=== PATIENT | female | born 1980 | race Caucasian/White ===

== ENCOUNTER 2016-05-03 20:45 | Emergency (ER) | payer BC ==
[~2016-05-03] VITALS: Ht 167.6 cm; Wt 81.3 kg
[~2016-05-03 20:45] MED LIST: LEVA500T PO; METR-1 PO; MIRTA15 PO; NORC7.5T PO; XANA0.5T PO; Z.0.BCPILL PO; ZYRT10TA12 PO
[2016-05-03 20:49] VITALS: BP 146/88; PULSE 88; RESP 20; TEMP 98; O2SAT 98
[2016-05-03] MEDS ORDERED: CLINDAMYCIN PHOS 600 MG/4 ML VIAL IM ONE (22:00)
[2016-05-03] MEDS ORDERED: TETANUS/DIPHTHERIA TOXOID ADULT 0.5 ML VIAL IM ONE (22:00)
[2016-05-03] MEDS ORDERED: LIDOCAINE 1%/EPINEPHrine 1:100,000 SOLN 20 ML VIAL INFIL ONE (22:00)
[2016-05-03] MEDS ORDERED: CLIN1CAP5 PO (22:07)
[2016-05-03] MEDS ORDERED: NORC5TAB PO (22:07)
[2016-05-03] MEDS ORDERED: BACT800T5 PO (22:07)
--- NOTE | 2016-05-03 22:07 | PD ---
HPI Chief Complaint: Skin Problem Time Seen by Provider: 21:51 Travel History International Travel<30 days: No Contact w/Intl Traveler<30days: No Traveled to known affect area: No History of Present Illness HPI 35 years old female complaining of painful lumps around the sternal area. Patient states that she has a lump around the sternal area for the past month. Patient states that she had increasing pain and swelling for the past few days. Patient states the pain is sharp stabbing pain localized to the anterior chest wall area. Patient denies any pain radiation. On a scale from 1-10 the pain is a 10. Patient states that she is not up-to-date with TD booster. 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) Social History Alcohol Use: No Tobacco Use: Yes (1 PPD) Substance Use: No Allergies-Medications (Allergen,Severity, Reaction): Coded Allergies: Flu Vaccine (Verified Allergy, Intermediate, LOCALIZED SWELLING/FEVER, ) Zoloft (Verified Allergy, Intermediate, UNKNOWN, 11/13/14) Codeine (Verified Allergy, Mild, Nausea/Vomiting, 11/13/14) Wellbutrin (Verified Adverse Reaction, Intermediate, METALLIC TASTE IN MOUTH, 11/13/14) Reported Meds & Prescriptions Reported Meds & Active Scripts Active Clindamycin (Clindamycin HCl) 150 Mg Cap 2 Tab PO Q6H Bactrim DS (Sulfamethoxazole-Trimethoprim) 800-160 Mg Tab 1 Tab PO BID [place] (Hydrocodone-Acetaminophen) 5-325 mg Tab 1 Tab PO Q6H PRN Levaquin 500 Mg Tab (Levofloxacin) 500 Mg Tab 500 Mg PO DAILY Flagyl (Metronidazole) 500 Mg Tab 500 Mg PO QID Reported Zyrtec (Cetirizine HCl) 10 Mg Tab 10 Mg PO DAILY Mirtazapine 15 Mg Tab Unknown Dose PO HS Control Pills (Miscellaneous Medication) Tab 1 Tab PO HS [place] 7.5-325 mg (Hydrocodone-Acetaminophen 7.5-325 mg) 7.5 Mg/325 Mg Tab 1 Tab PO Q6H PRN Xanax 0.5 mg (Alprazolam) 0.5 Mg Tab 0.5 Mg PO BID PRN Review of Systems General / Constitutional: No: Fever Eyes: No: Visual changes HENT: No: Headaches Cardiovascular: No: Chest Pain or Discomfort Respiratory: No: Shortness of Breath Gastrointestinal: No: Abdominal Pain Genitourinary: No: Dysuria Musculoskeletal: No: Pain Skin: No Rash Neurologic: No: Weakness Psychiatric: No: Depression Endocrine: No: Polydipsia Hematologic/Lymphatic: No: Easy Bruising Physical Exam Narrative GENERAL: Well-nourished, well-developed patient. SKIN: Warm and dry. HEAD: Normocephalic. EYES: No scleral icterus. No injection or drainage. NECK: Supple, trachea midline. No JVD or lymphadenopathy. CARDIOVASCULAR: Regular rate and rhythm without murmurs, gallops, or rubs. RESPIRATORY: Breath sounds equal bilaterally. No accessory muscle use. GASTROINTESTINAL: Abdomen soft, non-tender, nondistended. MUSCULOSKELETAL: No cyanosis, or edema. BACK: Nontender without obvious deformity. No CVA tenderness. Patient has an area redness swelling tenderness midsternal area with the nodule lesion over the sternum. Data Data Last Documented VS Vital Signs Date Time Temp Pulse Resp B/P Pulse Ox O2 Delivery O2 Flow Rate FiO2 05/03/16 20:49 98.0 88 20 146/88 98 Orders Lidocai-Epi 1%-1:100,000 Inj (Xylocaine- (05/03/16 22:00) Wound Culture And Gram Stain (05/03/16 21:57) Clindamycin Inj (Cleocin Inj) (05/03/16 22:00) Tetanus/Diphtheria Tox Adult (Tetanus/Di (05/03/16 22:00) Acetamin-Hydrocod 325-5 Mg ([place] 5-325 (05/03/16 22:15) MDM Medical Decision Making Medical Screen Exam Complete: Yes Emergency Medical Condition: Yes Differential Diagnosis Differential diagnosis including cellulitis, abscess, infected cyst. Narrative Course 35 year old female with a painful nodule lesion sternal area. Clindamycin 600 mg IM. TD booster given. Lortab 5/325, one tablet by mouth given. Procedures Procedure Narrative 1% lidocaine with epinephrine local anesthesia. Betadine wash. 1 cm incision was made with #11 scalpel. A moderate amount pus and sebaceous cyst material obtained. Wound culture obtained. Dressing applied. Diagnosis Primary Impression: Chest wall abscess Patient Instructions: General Instructions Additional Instructions: Take medication as directed. Return in 2 days for recheck and packing removal. Return sooner if worse. Med/Other Pt SpecificInfo: Prescription(s) given Scripts Clindamycin 150 Mg Cap2 Tab PO Q6H #80 CAP Prov:Blake Denton MD 05/03/16 Sulfamethoxazole-Trimethoprim (Bactrim DS)800-160 Mg Tab1 Tab PO BID #20 TAB Prov:Blake Denton MD 05/03/16 Hydrocodone-Acetaminophen ([place])5-325 mg Tab1 Tab PO Q6H PRN (PAIN) #20 TAB Prov:Blake Denton MD 05/03/16 Disposition: 01 DISCHARGE HOME Condition: Stable Blake Denton MD May 03, 2016 22:07
[2016-05-03] MEDS ORDERED: ACETAMINOPHEN/HYDROcodone 325 MG/5 MG TAB PO ONE (22:15)
[2016-05-05] MEDS ORDERED: ALPR.5 PO (15:54)
[2016-05-05] MEDS ORDERED: MIRT45TA PO (15:55)
== END 2016-05-04 00:07 | disposition home or self-care (01) ==
LOC: PHED 20:45
DX: L02.213 Cutaneous abscess of chest wall (principal); F17.210 Nicotine dependence, cigarettes, uncomplicated; F41.8 Other specified anxiety disorders
CPT/HCPCS: 10060; 87070; 87185

== ENCOUNTER 2016-05-05 14:41 | Emergency (ER) | payer BC ==
[~2016-05-05] VITALS: Ht 167.6 cm; Wt 79.0 kg
[~2016-05-05 14:41] MED LIST changes: +BACT800T5 PO; +CLIN1CAP5 PO; +NORC5TAB PO
[2016-05-05 14:45] VITALS: BP 120/70; PULSE 83; RESP 16; TEMP 98.2; O2SAT 97
--- NOTE | 2016-05-05 15:41 | PD ---
HPI . Chest wall abscess follow-up Chief Complaint: Wound/Suture/Staple Re-Check Time Seen by Provider: 15:40 Travel History International Travel<30 days: No Contact w/Intl Traveler<30days: No Traveled to known affect area: No History of Present Illness HPI 35-year-old female here to follow-up on her chest wall abscess that was drained 2 days ago. Patient had an incision and drainage and had packing placed in her chest wall abscess. She is here to have the packing removed. She is doing very well and reports that the draining has subsided significantly. She is taking her medications as prescribed and has no complaints today. Denies any fever or chills.. Initial wound culture with no growth after 24 hours. This was discussed with the patient. 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) Social History Alcohol Use: No Tobacco Use: Yes (1 PPD) Substance Use: No Allergies-Medications (Allergen,Severity, Reaction): Coded Allergies: Flu Vaccine (Verified Allergy, Intermediate, LOCALIZED SWELLING/FEVER, ) Zoloft (Verified Allergy, Intermediate, UNKNOWN, 05/05/16) Codeine (Verified Allergy, Mild, Nausea/Vomiting, 05/05/16) Wellbutrin (Verified Adverse Reaction, Intermediate, METALLIC TASTE IN MOUTH, 05/05/16) Reported Meds & Prescriptions Reported Meds & Active Scripts Active Clindamycin (Clindamycin HCl) 150 Mg Cap 2 Tab PO Q6H Bactrim DS (Sulfamethoxazole-Trimethoprim) 800-160 Mg Tab 1 Tab PO BID [place] (Hydrocodone-Acetaminophen) 5-325 mg Tab 1 Tab PO Q6H PRN Reported Mirtazapine 45 Mg Tab 45 Mg PO HS Xanax (Alprazolam) 0.5 Mg Tab 0.5 Mg PO Q8H PRN Review of Systems General / Constitutional: No: Fever Eyes: No: Visual changes HENT: No: Headaches Cardiovascular: No: Chest Pain or Discomfort Respiratory: No: Shortness of Breath Gastrointestinal: No: Abdominal Pain Genitourinary: No: Dysuria Musculoskeletal: No: Pain Skin: No Rash Neurologic: No: Weakness Psychiatric: No: Depression Endocrine: No: Polydipsia Hematologic/Lymphatic: No: Easy Bruising Physical Exam Narrative GENERAL: AAO x 3, no acute distress, Well-nourished, well-developed patient. SKIN: Warm and dry. No visible rashes or bruising. HEAD: Normocephalic and atraumatic. EYES: No scleral icterus. No injection or drainage. ENT: No nasal drainage noted. Mucous membranes pink. Airway patent. NECK: Supple, trachea midline. No JVD. CARDIOVASCULAR: Regular rate and rhythm without murmurs, gallops, or rubs. RESPIRATORY: Breath sounds equal bilaterally. No accessory muscle use. No rhonchi or rales. There is a small incision in the sternal area between the breast with packing. Packing was removed. No purulent matter. No surrounding erythema. GASTROINTESTINAL: Abdomen soft, non-tender, nondistended. EXTREMITIES: No cyanosis or edema. BACK: Nontender without obvious deformity. No CVA tenderness. PSYCH: AAO x 3, normal affect. Data Data Last Documented VS Vital Signs Date Time Temp Pulse Resp B/P Pulse Ox O2 Delivery O2 Flow Rate FiO2 05/05/16 14:45 98.2 83 16 120/70 97 MDM Medical Decision Making Medical Screen Exam Complete: Yes Emergency Medical Condition: Yes Medical Record Reviewed: Yes Differential Diagnosis Chest wall abscess, cellulitis, less likely sepsis Narrative Course 35-year-old female here to follow-up on her chest wall abscess that was drained 2 days ago. Patient had an incision and drainage and had packing placed in her chest wall abscess. She is here to have the packing removed. She is doing very well and reports that the draining has subsided significantly. She is taking her medications as prescribed and has no complaints today. Denies any fever or chills.. Initial wound culture with no growth after 24 hours. This was discussed with the patient. Patient seen and examined. The abscess is healing well. Packing was removed without any incident. Area cleaned and dressed with sterile dressing. Advised daily dressing changes. Continue antibiotics until complete Recommend follow-up primary care provider Patient verbalized understanding of instructions, questions were answered, and thanked me for their care. I advised them if their condition worsens, please return to the nearest emergency room for further care. Diagnosis Primary Impression: Chest wall abscess Patient Instructions: General Instructions Additional Instructions: Please return to emergency department if your symptoms return or worsen. Follow up with your primary care provider. Take medications as prescribed. Clarinda for worsening signs of infection which include increased redness, increased warmth, purulent drainage, increased swelling or streaking. Change dressings daily. Leave open to air at home. Med/Other Pt SpecificInfo: No Change to Meds Disposition: 01 DISCHARGE HOME Condition: Stable Miladys Camargo May 05, 2016 15:40
[2016-05-05] MEDS ORDERED: ALPR.5 PO (15:54)
[2016-05-05] MEDS ORDERED: MIRT45TA PO (15:55)
== END 2016-05-05 16:10 | disposition home or self-care (01) ==
LOC: PHED 14:41 → PHEFT 16:10
DX: Z48.00 Encounter for change or removal of nonsurgical wound dressing (principal)
CPT/HCPCS: 99281